=== PATIENT | male | born 1965 | race Caucasian/White ===

== ENCOUNTER → 2018-04-13 | Outpatient (CLI) | payer BC ==
[~2018-04-13] MED LIST: AMOXICILLIN 50500 MG PO; AMOXICILLIN 8751 TAB PO; BENICAR HCT 12.1 TA1 PO; DIOVAN/HCT 12.51 TA1 PO; DOXYCYCLINE 10100 MG PO; MOTRIN 400400 MG/TAB PO; PROTONIX 40MG T40 MG PO; VOLTAREN 75 DR75 MG PO; ZOCOR 40MG40 MG PO
== END ==
LOC: COL.RAD 08:07
DX: M25.511 Pain in right shoulder (principal)
CPT/HCPCS: J3301; Q9967

== ENCOUNTER → 2018-06-28 | Outpatient (CLI) | payer BC ==
[~2018-06-28] MED LIST changes: +ASPIRIN 81M81 MG/TA2 PO; +NORCO 325 MG-51 TAB PO; +NORVASC 10MG10 MG PO; +PRILOTC; +TOPROL XL100 MG
== END ==
LOC: COL.VAS 14:38
DX: M79.89 Other specified soft tissue disorders (principal)

== ENCOUNTER 2018-07-03 16:04 | Emergency (ER) | payer BC ==
[~2018-07-03] VITALS: Ht 175.3 cm; Wt 138.6 kg
[~2018-07-03 16:04] MED LIST changes: -ASPIRIN 81M81 MG/TA2 PO; -NORCO 325 MG-51 TAB PO; -NORVASC 10MG10 MG PO; -PRILOTC; -TOPROL XL100 MG
[2018-07-03 16:08] VITALS: TEMP 97.9
[2018-07-03] MEDS ORDERED: NORVASC 10MG10 MG PO (16:20)
[2018-07-03 16:21] VITALS: PULSE 97
[2018-07-03] MEDS ORDERED: PRILOTC (16:21)
[2018-07-03] MEDS ORDERED: TOPROL XL100 MG (16:21)
[2018-07-03] MEDS ORDERED: ASPIRIN 81M81 MG/TA2 PO (16:21)
[2018-07-03] MEDS ORDERED: NORCO 325 MG-51 TAB PO (17:33)
[2018-07-03 17:42] VITALS: BP 139/86
== END 2018-07-03 17:35 | disposition home or self-care (01) ==
LOC: COL.ER 16:04
DX: S01.112A Laceration without foreign body of left eyelid and periocular area, initial encounter (principal); S63.611A Unspecified sprain of left index finger, initial encounter; I10 Essential (primary) hypertension; Z79.82 Long term (current) use of aspirin; Z87.891 Personal history of nicotine dependence; V19.9XXA Pedal cyclist (driver) (passenger) injured in unspecified traffic accident, initial encounter

== ENCOUNTER 2018-07-08 13:43 | Emergency (ER) | payer BC ==
[~2018-07-08 13:43] MED LIST changes: +ASPIRIN 81M81 MG/TA2 PO; +NORCO 325 MG-51 TAB PO; +NORVASC 10MG10 MG PO; +PRILOTC; +TOPROL XL100 MG
[2018-07-08 13:52] VITALS: BP 156/99; PULSE 127; TEMP 98.2
== END 2018-07-08 13:56 | disposition home or self-care (01) ==
LOC: COL.ER 13:43
DX: S01.112D Laceration without foreign body of left eyelid and periocular area, subsequent encounter (principal); X58.XXXD Exposure to other specified factors, subsequent encounter; Z79.82 Long term (current) use of aspirin

== ENCOUNTER 2020-12-04 16:35 | Emergency (ER) | payer BC ==
[~2020-12-04] VITALS: Ht 175.3 cm; Wt 139.1 kg
[2020-12-04 17:52] LABS: BASO % 0.3 % (0.0-2.0); EOS # 0.2 (0.0-0.7); EOS % 1.9 % (0-4.0); GRAN # 6.1 (1.4-6.5); GRAN % 63.6 % (42.2-75.2); HEMATOCRIT 43.6 % (42.0-52.0); HEMOGLOBIN 14.8 g/dl (13.5-18.0); LYMPH # 2.7 (1.2-3.4); LYMPH % 28.4 % (20.0-51.0); MEAN CELL VOLUME 88 fl (80.0-100.0); MEAN CORPUSCULAR HEMOGLOBIN 30 pg (27.0-31.0); MEAN CORPUSCULAR HGB CONC 34 g/dl (33.0-37.0); MONO # 0.5 (0.1-0.6); PLATELET COUNT 305 K/mm3 (130-400); RED BLOOD COUNT 4.94 M/mm3 (4.20-5.60); REDCELL DISTRIBUTION WIDTH-CV 13.6 % (11.5-14.5)
[2020-12-04 17:56] LABS: ALANINE AMINOTRANSFERASE 103 U/L (4-49); ALBUMIN 3.7 gm/dL (3.5-5.0); ALCOHOL(ethanol),MEDICAL 36 mg/dL; ALKALINE PHOSPHATASE 70 U/L (50-136); ANION GAP 11 mmol/L (7-16); AST,SGOT 99 U/L (15-37); BILIRUBIN,TOTAL 0.8 mg/dL (0.0-1.0); BLOOD UREA NITROGEN 14 mg/dL (9-20); CALCIUM 8.1 mg/dL (8.4-10.2); CARBON DIOXIDE 19 mmol/L (22-30); CHLORIDE 106 mmol/L (98-107); CREATININE, serum 1.34 (0.66-1.25); GLUCOSE 191 mg/dL (74-106); MAGNESIUM 1.8 mg/dL (1.6-2.3); POTASSIUM 3.7 mmol/L (3.4-5.0); SODIUM 136 mmol/L (137-145); TOTAL PROTEIN 6.2 gm/dL (6.4-8.2)
[2020-12-04 18:15] LABS: TROPONIN-I < 0.012 ng/mL (0.000-0.035)
[2020-12-04 20:45] VITALS: BP 123/86; PULSE 80; TEMP 97.6
== END 2020-12-04 21:00 | disposition home or self-care (01) ==
LOC: COL.ER 16:35
PROVIDERS: Nurse Practitioner
DX: I95.9 Hypotension, unspecified (principal); E86.0 Dehydration; I10 Essential (primary) hypertension; Z79.899 Other long term (current) drug therapy
CPT/HCPCS: J7030

== ENCOUNTER → 2022-07-08 | Outpatient (CLI) | payer OTHER ==
[~2022-07-08] MED LIST changes: -PRILOTC; +PRILOTC PO
== END ==
LOC: COL.RAD 09:11
DX: E88.89 Other specified metabolic disorders (principal); R16.0 Hepatomegaly, not elsewhere classified; R04.2 Hemoptysis
CPT/HCPCS: Q9967

== ENCOUNTER → 2023-03-22 | Outpatient (CLI) | payer BC | LOC: COL.RAD 07:00 | DX: N20.0 Calculus of kidney (principal); N32.89 Other specified disorders of bladder ==